=== PATIENT | female | born 1955 | race Caucasian/White ===

== ENCOUNTER 2023-05-04 11:59 | Outpatient (AMB) | payer MEDICARE, MEDICAID, SELFPAY ==
--- NOTE | 2023-05-04 12:01 | A.OFFVIS_ITS ---
Intake Vital Signs 05/04/23 12:03 Height 5 ft 1 in Weight 132 lb BMI 24.9 Intake Visit Reasons: Any [employer]er- Right shoulder pain - last inj 11/12/17 Intake Note: Sara is a 67 year old right hand dominant female who presents today as a new patient with complaints of right shoulder pain. Hx of injection done in 2018. Patient reports that this injection was very helpful for her and she would like to repeat injection today. Allergies No Known Allergies Allergy (Verified 05/04/23 12:04) HPI Any [employer]er- Right shoulder pain - last inj 11/12/17 HPI Details Sara is a 67 year old woman who presents to discuss her right shoulder pain. She complains of pain with daily activity, worse with overhead activity and at night. She says she cannot do the daily activities she wants the last few m onths, and says even washing dishes is difficult for her. She received a steroid injection several years ago, 11/12/17, with good relief, and would like to discuss a repeat injection today. Review of Systems Const All systems reviewed & are unremarkable except as noted in HPI and below Physical Exam Vital Signs: BMI result Body Mass Index 24.9 Const General: no acute distress, alert and awake Orientation/consciousness: patient oriented x3 HEENT Head: Yes normocephalic and Yes atraumatic Eyes EOM: EOMs intact bilaterally Resp Effort & Inspection: normal respiratory effort and able to speak in complete sentences Cardio Jugular venous distension: no JVD Skin General skin exam: turgor normal Rashes: no rashes Neuro General: patient oriented x3 Extrem Other: Right Shoulder: +H/N 40/90/130/L5 Psych Appearance: grossly normal Affect: normal affect Attitude: cooperative Office Procedures Joint Injection/Drain Joint Injection/Drain Details: Injected 1 mL of Decadron and 3 mL 1% lidocaine and 3 mL of 0.25% Marcaine. Site was prepped using aseptic technique. Patient tolerated the procedure well. Primary Site: right shoulder Approach Used: anterolateral Coding 80973 - Large joint Procedure code (CPT) selection complete Results Reviewed Results Reviewed: 05/04/23 12:04 BUPivacaine MPF 0.25 % [Sensorcaine-MPF 0.25% 10 ML] 10 ml .ROUTE .STK-MED ONE Lidocaine HCl 2 % MPF [Xylocaine 2 % MPF] 5 ml .ROUTE .STK-MED ONE dexAMETHasone sod phosphate [Decadron] 4 mg .ROUTE .STK-MED ONE Assessment & Plan Assessment & Plan (1) Impingement syndrome of right shoulder: Code(s): M75.41 - Impingement syndrome of right shoulder Plan: This is a 67 year old woman with right shoulder impingement. She has pain with daily activity, worse with overhead activity and at night. She has a hx of good relief from a steroid injection in the past. I discussed her diagnosis and treatment options. I injected her left shoulder today.. She can follow up prn, if her symptoms persist or worsen she can follow up and we may consider an MRI. Plan Scribed for Todd Maxwell MD by Jose Yost, medical front desk coordinator, on 05/04/23 at 12:10 PM, EST. Coding Level of Care Code New Pt Level 3 (72036) Diagnoses Impingement syndrome of right shoulder M75.41 CPT Codes Coding - 37360 Large joint: 53865 - Large joint ([id number])
[2023-05-04 12:03] VITALS: BMI 24.9
== END 2023-05-04 12:23 | disposition home or self-care (01) ==
PROVIDERS: PCP Pediatrics; Visit Provider Orthopaedic Surgery
DX: M75.41 Impingement syndrome of right shoulder (principal)
CPT/HCPCS: 20610; 99203

== ENCOUNTER → 2023-05-04 11:59 | Outpatient (BNVA) | payer MEDICARE, MEDICAID, SELFPAY | PROVIDERS: PCP Pediatrics; Visit Provider Orthopaedic Surgery | DX: M75.41 Impingement syndrome of right shoulder (principal) | CPT/HCPCS: 20610; 99202; J0665; J1100 ==